=== PATIENT | male | born 1945 | race Caucasian/White ===

== ENCOUNTER 2018-12-12 17:11 | Emergency (ER) | payer OTHER ==
[~2018-12-12] VITALS: Ht 170.2 cm; Wt 100.5 kg
[2018-12-12] MEDS ORDERED: HYDROmorphONE 2 MG/ML SYG IM STA (17:14)
[2018-12-12] MEDS ORDERED: ONDANSETRON (ODT) 4 MG TAB ODT STA (17:14)
[2018-12-12] MEDS ORDERED: KETOROLAC 30 MG INJ IM STA (17:14)
[2018-12-12 17:39] VITALS: Ht 170.2 cm; Wt 100.5 kg
[2018-12-12] MEDS ORDERED: KETOROLAC 30 MG INJ IV STA (17:40)
[2018-12-12] MEDS ORDERED: HYDROmorphONE 2 MG/ML SYG IV STA ×2 (17:40→18:19)
[2018-12-12] MEDS ORDERED: IBUP-1542 PO (19:08)
[2018-12-12] MEDS ORDERED: HYDR-4011 PO (19:08)
[2018-12-12 22:48] VITALS: BP 132/86; PULSE 80; RESP 20
--- NOTE | 2018-12-12 22:51 | ERD ---
ER Documentation Chief Complaint Chief Complaint pt karl from home for left iraj pain 09/01 x 1 day HPI Patient is a 73-year-old male with arthritis who presents with back pain. The patient was brought in by ambulance. He says "I think it is my kidneys or arthritis in my back". He has had episodes which are similar in the past. His pain started last night but was worse today. He tried Advil. He had worked all night last night prior to the pain starting. He denies incontinence. He denies fevers. The pain is in the bilateral lower back. He does not currently have a primary doctor. ROS All systems reviewed and are negative except as per history of present illness. Medications Home Meds Active Scripts Ibuprofen* (Motrin*) 600 Mg Tab, 600 MG PO Q6H PRN for PAIN AND OR ELEVATED TEMP, #30 TAB Prov:DERICK GUZMAN MD 12/12/18 Hydrocodone/Acetaminophen (Lebo 5-325 Tablet) 1 Each Tablet, 1 TAB PO Q6H PRN for PAIN, #7 TAB Prov:DERICK GUZMAN MD 12/12/18 Allergies Allergies: Coded Allergies: No Known Allergy (Unverified , 12/12/18) PMhx/Soc History of Surgery: Yes (prostate) Hx Miscellaneous Medical Probl: No Hx Alcohol Use: No Hx Substance Use: No Hx Tobacco Use: No Smoking Status: Never smoker FmHx Family History: diabetes Physical Exam Vitals Vital Signs Date Temp Pulse Resp B/P (MAP) Pulse Ox O2 O2 Flow FiO2 Time Delivery Rate 12/12/18 81 22 133/77 96 Room Air 19:43 (95) 12/12/18 85 17 137/84 92 Room Air 18:22 (101) 12/12/18 81 17 136/87 100 Room Air 17:55 (103) 12/12/18 98.6 81 17 133/78 100 17:39 (96) Physical Exam Const: No acute distress Head: Atraumatic Eyes: Normal Conjunctiva ENT: Normal External Ears, Nose and Mouth. Neck: Full range of motion. No meningismus. Resp: Clear to auscultation bilaterally Cardio: Regular rate and rhythm, no murmurs Abd: Soft, non tender, non distended. Normal bowel sounds Skin: No petechiae or rashes Back: Lower back pain without step-off or deformity Ext: No cyanosis, or edema Neur: Awake and alert, no incontinence Results 24 hrs Laboratory Tests Test 12/12/18 18:44 Bedside Urine pH (LAB) 5.5 Bedside Urine Protein (LAB) Negative Bedside Urine Glucose (UA) Negative Bedside Urine Ketones (LAB) Negative Bedside Urine Blood 1+ Bedside Urine Nitrite (LAB) Negative Bedside Urine Leukocyte Esterase (L Negative Current Medications Medications Dose Sig/Chelsea Start Time Status Last (Trade) Ordered Route PRN Stop Time Admin Dose Reason Admin 2 mg ONCE STAT 12/12/18 DC Hydromorphone IM 17:14 HCl 12/12/18 17:41 (Dilaudid) Ketorolac 30 mg ONCE STAT 12/12/18 DC Tromethamine IM 17:14 (Toradol) 12/12/18 17:41 Ondansetron 4 mg ONCE STAT 12/12/18 DC 12/12/18 HCl (Zofran ODT 17:14 17:48 Odt) 12/12/18 17:15 1 mg ONCE STAT 12/12/18 DC 12/12/18 Hydromorphone IV 17:40 17:48 HCl 12/12/18 17:41 (Dilaudid) Ketorolac 30 mg ONCE STAT 12/12/18 DC 12/12/18 Tromethamine IV 17:40 17:48 (Toradol) 12/12/18 17:41 1 mg ONCE STAT 12/12/18 DC 12/12/18 Hydromorphone IV 18:19 18:35 HCl 12/12/18 18:20 (Dilaudid) Procedures/MDM CT abdomen and pelvis shows no kidney stone or surgical process per radiology. Urine dip shows 1+ blood but no infection. Patient is a 73-year-old male with arthritis who presents with back pain. The patient has no incontinence or fever. At this point I doubt epidural abscess, epidural hematoma, or cauda equina syndrome. The patient was given Toradol and Dilaudid and feels better. He has no sign of kidney stone. There is no urine infection or pyelonephritis. I believe outpatient management is appropriate patient will need close follow-up with a primary doctor within 24-48 hours for reevaluation. He can return sooner for any worsening symptoms. Departure Diagnosis: Primary Impression: Back pain Back pain location: low back pain Chronicity: acute Back pain laterality: bilateral Sciatica presence: without sciatica Qualified Codes: M54.5 - Low back pain Condition: Fair Patient Instructions: Back Pain (Acute Or Chronic) Referrals: Your doctor Additional Instructions: Llame al doctor MAANA y dusty aayush NATHEN PARA DENTRO DE 1-2 RIOJAS.Dgale a la secretaria que nosotros le instruimos hacer esta nathen.Avise o llame si noguera condicin se empeora antes de la nathen. Regresa aqui si peor o no mejor. DERICK GUZMAN MD Dec 12, 2018 22:51
== END 2018-12-12 22:50 | disposition home or self-care (01) ==
LOC: E/R 17:11
DX: M54.5 Low back pain (principal)
CPT/HCPCS: 74176; 81003; 96374; 96375; 96376; 99285; J1170; J1885